=== PATIENT | male | born 1980 | race Caucasian/White ===

== ENCOUNTER 2017-05-14 18:38 | Emergency (ER) | payer SELFPAY ==
[~2017-05-14] VITALS: Ht 177.8 cm; Wt 61.0 kg
[~2017-05-14 18:38] MED LIST: BACT800T5 PO; HYDR-3533 PO; NAPR500 PO
[2017-05-14 18:45] VITALS: BP 124/60; PULSE 86; RESP 16; TEMP 98.3; O2SAT 99
[2017-05-14] MEDS ORDERED: DOXY100C PO (19:34)
--- NOTE | 2017-05-14 19:39 | PD ---
HPI Chief Complaint: Skin Problem Time Seen by Provider: 19:31 Travel History International Travel<30 days: No Contact w/Intl Traveler<30days: No Traveled to known affect area: No History of Present Illness HPI 37-year-old male presents for evaluation of an area of skin redness and swelling to the posterior neck. It started a few days ago. Associated pain, burning, worse with palpation. Denies any fevers, chills, drainage. He has no other complaints at this time. PFSH Past Medical History Diminished Hearing: No Hepatitis: Yes (HEP C) Social History Alcohol Use: No Tobacco Use: Yes (04/15 PPD) Substance Use: Yes (HEROIN 04/19/17) Allergies-Medications (Allergen,Severity, Reaction): Coded Allergies: acetaminophen (Verified Allergy, Severe, 05/14/17) codeine (Verified Allergy, Severe, 05/14/17) penicillin G (Verified Allergy, Severe, VOMITING, 05/14/17) tramadol (Verified Allergy, Severe, 05/14/17) Reported Meds & Prescriptions Reported Meds & Active Scripts Active Doxycycline Hyclate 100 Mg Cap 100 Mg PO BID Bactrim DS (Sulfamethoxazole-Trimethoprim) 800-160 Mg Tab 1 Tab PO BID 14 Days Naprosyn (Naproxen) 500 Mg Tab 500 Mg PO Q12HR PRN Review of Systems General / Constitutional: No: Fever, Chills Skin: Positive Other (positive for skin redness, tenderness) Physical Exam Narrative GENERAL: Well-developed well-nourished male in no acute distress SKIN: Warm and dry. 2 cm area of induration with mild central excoriation to the posterior left neck. There is no fluctuance or drainage. HEAD: Atraumatic. Normocephalic. EYES: Pupils equal and round. No scleral icterus. No injection or drainage. ENT: No nasal bleeding or discharge. Mucous membranes pink and moist. NECK: Trachea midline. No JVD. CARDIOVASCULAR: Regular rate and rhythm. No murmur appreciated. RESPIRATORY: No accessory muscle use. Clear to auscultation. Breath sounds equal bilaterally. Data Data Last Documented VS Vital Signs Date Time Temp Pulse Resp B/P (MAP) Pulse Ox O2 Delivery O2 Flow Rate FiO2 05/14/17 18:45 98.3 86 16 124/60 (81) 99 Orders Orders Ed Discharge Order (05/14/17 20:12) [facility] Medical Decision Making Medical Screen Exam Complete: Yes Emergency Medical Condition: Yes Medical Record Reviewed: Yes Differential Diagnosis Cellulitis, abscess, infected cyst Narrative Course The patient has an area of cellulitis to the posterior left neck. The patient was seen with a skin infection on his ankle on April 19. At that visit he had wound cultures grow out group A beta strep as well as staph aureus MRSA. Therefore the patient will be discharged with doxycycline for coverage of what both of these organisms. Discussed signs and symptoms that would warrant returning to the emergency room. He is stable for discharge. Diagnosis Primary Impression: Cellulitis Additional Instructions: Medication as prescribed. Warm compresses several times a day 15 minutes at a time. Return for any new or worsening symptoms. Med/Other Pt SpecificInfo: Prescription(s) given Scripts Doxycycline Hyclate (Doxycycline Hyclate) 100 Mg Cap 100 MG PO BID for Infection, #20 CAP 0 Refills Prov: Usha Sterling DO 05/14/17 Disposition: 01 DISCHARGE HOME Condition: Stable Dago Machado May 14, 2017 19:39
== END 2017-05-14 20:22 | disposition home or self-care (01) ==
LOC: PHED 18:38 → PHEFT 20:22
DX: L03.221 Cellulitis of neck (principal); F17.200 Nicotine dependence, unspecified, uncomplicated
CPT/HCPCS: 99283